=== PATIENT | female | born 1975 | race Caucasian/White ===

== ENCOUNTER 2020-09-21 10:26 | Emergency (ER) | payer OTHER | END 2020-09-21 13:45 | disposition home or self-care (01) | LOC: FER 10:26 | DX: S93.612A Sprain of tarsal ligament of left foot, initial encounter (principal); W10.9XXA Fall (on) (from) unspecified stairs and steps, initial encounter; Y92.009 Unspecified place in unspecified non-institutional (private) residence as the place of occurrence of the external cause; Z86.16 Personal history of COVID-19 | CPT/HCPCS: 73630 ==

== ENCOUNTER 2021-02-06 09:59 | Emergency (ER) | payer OTHER ==
[2021-02-06 13:52] LABS: EOSINOPHIL 2.3 % (0-5); HCT 40.1 % (37.0-47.0); HGB 13.3 g/dl (12.5-16.0); LYMPHOCYTE 28.6 % (15-48); MCH 31.4 pg (25.0-31.0); MCHC 33.2 g/dL (32.0-36.0); MCV 94.6 fL (78.0-100.0); MONOCYTE 8.6 % (0-12); MPV 10.9 fL (6.0-9.5); NEUTROPHIL 59.1 % (41-80); NRBC 0; PLT 178 K/uL (150-400); RBC 4.24 M/uL (4.20-5.40); RDW 13.1 % (11.5-14.0)
[2021-02-06 14:00] LABS: BILIRUBIN NEGATIVE (NEGATIVE); BLOOD TRACE-INTACT Ery/uL (NEGATIVE); CLARITY HAZY (CLEAR); COLOR YELLOW (YELLOW); GLUCOSE (U) NORMAL (NORMAL); LEUKOCYTES NEGATIVE Leu/uL (NEGATIVE); NITRITE NEGATIVE (NEGATIVE); PROTEIN NEGATIVE (NEGATIVE); UROBILINOGEN 0.2 mg/dL (0.2-1.0)
[2021-02-06 14:12] LABS: SQUAMOUS EPITHELIAL CELLS RARE
[2021-02-06 14:24] LABS: BUN/CREAT RATIO (CALC) 29.9 RATIO; CREATININE 0.77 mg/dL (0.51-0.95); POTASSIUM 4.1 mmol/L (3.5-5.1)
[2021-02-06] MEDS ORDERED: FIORICET1 EACH PO (14:45)
== END 2021-02-06 15:03 | disposition home or self-care (01) ==
LOC: FER 09:59
PROVIDERS: Nurse Practitioner Family
DX: G43.909 Migraine, unspecified, not intractable, without status migrainosus (principal)
CPT/HCPCS: 36415; 70450; 80048; 81001; 85025; J1100; J1200; J1885; J2405; J7030